=== PATIENT | female | born 1970 | race Caucasian/White ===

== ENCOUNTER → 2016-08-17 | Outpatient (CLI) | payer BC ==
[2016-08-17 10:02] LABS: HEMATOCRIT 38.2 % (37-47); MEAN CELL VOLUME 90.1 fL (80-100); MEAN CORPUSCULAR HEMOGLOBIN 30.2 pg (25-34); MEAN CORPUSCULAR HGB CONC 33.5 g/dl (32-36); MEAN PLATELET VOLUME 9.9 fL (7.4-10.4); PLATELET COUNT 154 K/uL (130-400); RED BLOOD COUNT 4.24 M/uL (4.2-5.4); WHITE BLOOD COUNT 3.02 K/uL (4.8-10.8)
[2016-08-17 10:27] LABS: BLOOD UREA NITROGEN 19 mg/dl (7-18); CALCIUM 8.3 mg/dl (8.5-10.1); CARBON DIOXIDE 29 mmol/L (21-32); CHLORIDE 108 mmol/L (98-107); CREATININE 0.71 mg/dl (0.60-1.20); GLUCOSE 91 mg/dl (70-99); POTASSIUM 4.1 mmol/L (3.5-5.1); SODIUM 142 mmol/L (136-145)
== END | disposition home or self-care (01) ==
LOC: C.LAB 09:34
PROVIDERS: ATTEND Internal Medicine
DX: E03.9 Hypothyroidism, unspecified (principal)

== ENCOUNTER → 2016-09-29 | Outpatient (CLI) | payer BC ==
--- NOTE | 2016-09-29 16:20 | MAMMOGRAPHY REPORT ---
BILATERAL DIGITAL SCREENING MAMMOGRAM TOMOSYNTHESIS WITH CAD: 09/29/2016 CLINICAL HISTORY: Routine screening. Patient has no complaints. TECHNIQUE: Breast tomosynthesis in addition to standard 2D mammography was performed. Current study was also evaluated with a Computer Aided Detection (CAD) system. COMPARISON: Comparison is made to exams dated: 09/29/2015 mammogram, 08/12/2014 mammogram, 05/27/2013 guy mogram, and 05/24/2012 mammogram - [facility]. BREAST COMPOSITION: The tissue of both breasts is extremely dense, which lowers the sensitivity of m ammography. FINDINGS: The parenchymal pattern is unchanged. There are a few benign-appearing calcifications in the breasts. No developing mass, architectural distortion or cluster of suspicious microcalcificatio ns is seen. IMPRESSION: ACR BI-RADS CATEGORY 2: BENIGN There is no mammographic evidence of malignancy. A 1 year screening mammogram is recommended. The pa tient will receive written notification of the results. Approximately 10% of breast cancers are not detected with mammography. A negative mammographic report should not delay biopsy if a clinically suggestive mass is present. Brisa Greene M.D. ay/:09/29/2016 14:57:59 Pre Algebra Teacher: Zulma COLVIN(Mary)(Kenia)(BD), [facility] letter sent: Normal 1/2 BI-RADS Code: ACR BI-RADS Category 2: Benign
== END | disposition home or self-care (01) ==
LOC: C.MAMM 13:38
PROVIDERS: ATTEND Obstetrics & Gynecology
DX: Z12.31 Encounter for screening mammogram for malignant neoplasm of breast (principal)

== ENCOUNTER 2017-06-05 19:00 | Emergency (ER) | payer BC ==
[~2017-06-05] VITALS: Ht 160 cm; Wt 70.2 kg
[2017-06-05 19:29] VITALS: TEMP 37; Ht 160 cm; Wt 70.2 kg
[2017-06-05] MEDS ORDERED: CEFAZOLIN SOD 1000MG/7.5 ML IV PUSH IV STA (20:10)
[2017-06-05] MEDS ORDERED: OPTIRAY 320 IV PRN (20:30)
[2017-06-05] MEDS ORDERED: MELO7.5T5 PO (20:40)
[2017-06-05] MEDS ORDERED: CEFAZOLIN IV 3,000 MG in SYRINGE 0 ML IV ONE (20:45)
[2017-06-05 21:02] LABS: BASO % 0.2 %; BASO ABS # 0.01 K/uL (0-0.2); EOS % 1.2 %; EOS ABS # 0.07 K/uL (0-0.5); HEMATOCRIT 35.9 % (37-47); HEMOGLOBIN 12.7 g/dL (12.0-16.0); IG# 0.01 K/uL (0.00-0.02); LYMPH ABS # 1.43 K/uL (1.2-3.4); MEAN CELL VOLUME 88.6 fL (80-100); MEAN CORPUSCULAR HEMOGLOBIN 31.4 pg (25-34); MEAN CORPUSCULAR HGB CONC 35.4 g/dl (32-36); MEAN PLATELET VOLUME 10.7 fL (7.4-10.4); MONO % 5.9 %; MONO ABS # 0.34 K/uL (0.11-0.59); NEUT % 67.5 %; NEUT ABS # 3.86 K/uL (1.4-6.5); PLATELET COUNT 135 K/uL (130-400); RED CELL DISTRIBUTION WIDTH CV 12.1 % (11.5-14.5); RED CELL DISTRIBUTION WIDTH SD 38.9 fL (36.4-46.3); WHITE BLOOD COUNT 5.72 K/uL (4.8-10.8)
[2017-06-05 21:18] LABS: CALCIUM 8.8 mg/dl (8.5-10.1); CREATININE 0.66 mg/dl (0.60-1.20); POTASSIUM 3.5 mmol/L (3.5-5.1)
--- NOTE | 2017-06-05 22:00 | DIAGNOSTIC IMAGING REPORT ---
RIGHT HAND CT with intravenous contrast CT DOSE: 260.98 mGy.cm HISTORY: Right hand swelling. ct rt hand r/o abscess TECHNIQUE: Multiaxial CT images of the right hand were performed and reformatted in the sagittal and coronal plane following the use of intravenous contrast. A dose lowering technique was utilized adhering to the principles of ALARA. COMPARISON: None. FINDINGS: No acute fracture or dislocation within the right hand. No cortical destruction arthrosis to suggest osteomyelitis at this time. There is a 4 mm ossific density along the volar side of the head of the second metatarsal. This could be due to old trauma or a sesamoid bone. No loculated fluid collections to suggest an abscess. No radiopaque foreign bodies. Mild thickening within the proximal flexor digitorum tendons of the index finger at the level of the second MCP joint. There is mild subcutaneous fat and along the volar side of the index finger crush subtle trace effusions at the second and third MCP joints. No significant joint space narrowing. No soft tissue gas identified. IMPRESSION: 1. Mild subcutaneous fat stranding at the volar side of the index finger. This favors a cellulitis. 2. No loculated fluid collections to suggest an abscess. 3. Possible trace joint effusions at the second and third MCP joints. This could be due to an inflammatory or infectious process. However, there is no joint space narrowing or bony obstruction identified at this time. Clinical correlation recommended to exclude the possibility of a developing septic arthritis. 4. Focal thickening at the flexor digitorum tendon of the index finger at the level of the second MCP joint consistent with a tendinopathy. 5. A 4 mm ossific density along the volar side of the head of the second metatarsal. This could be due to old trauma or a sesamoid bone. Electronically signed by: Roel Agustin M.D. 06/05/2017 9:59 PM Dictated Date/Time: 06/05/2017 9:47 PM
[2017-06-05] MEDS ORDERED: CEPH500C PO (23:04)
--- NOTE | 2017-06-05 23:05 | EMERGENCY ROOM VISIT NOTE ---
History Report prepared by Dianna: Corry Chan Under the Supervision of: Dr. Zachary Jarquin D.O. First contact with patient: 20:00 Chief Complaint: INFECTION Stated Complaint: U TOLD TO COME,INFECTION IN HAND Nursing Triage Summary: Right Hand swollen and increasing for two days. Pt was seen at [facility] and told she needed admitted. Pt did not want admitted and told to try coming to ER for MRI and IV antibiotics. History of Present Illness The patient is a 46 year old female who presents to the Emergency Room with complaints of worsening right hand pain and swelling starting 2 days ago. The patient was sent to the ED from [facility] for IV antibiotics and imaging. The patient notes that she went to a spa 3 days ago where she had a hand treatment. She woke up the next morning with some right 2nd and 3rd finger pain. She had some difficulty sleeping that night from the pain. Yesterday, she started having swelling in her fingers which worsened throughout the day. She went to [email or web address] today and was referred to [facility]. [facility] was concerned because she had some redness up into her arm. They recommended admission for IV antibiotics and MRI, but she did not want to be admitted. She was sent to the ED. She does not have any other complaints. She denies having any medical problems. Source of History: patient Onset: 2 days ago Position: hand (right) Quality: other (pain and swelling) Timing: worsening Note: Pt has some redness into her arm. She denies any other symptoms. Review of Systems See HPI for pertinent positives & negatives. A total of 10 systems reviewed and were otherwise negative. Past Medical & Surgical Medical Problems: (1) No chronic problems Family History No pertinent family history stated. Social History Smoking Status: Current Some Day Smoker Marital Status: Housing Status: lives with family Occupation Status: employed Current/Historical Medications Scheduled Cephalexin Monohydrate (Keflex), 500 MG PO QID Scheduled PRN Meloxicam (Mobic), 7.5 MG PO DAILY PRN for Pain Allergies Coded Allergies: No Known Allergies (Verified Allergy, Unknown, 12/23/04) Physical Exam Vital Signs Date Time Temp Pulse Resp B/P (MAP) Pulse Ox O2 Delivery O2 Flow Rate FiO2 06/05/17 22:11 78 20 110/81 98 Room Air 06/05/17 20:38 78 20 120/76 97 Room Air 06/05/17 19:29 37.0 92 16 145/80 98 Room Air Physical Exam CONSTITUTIONAL/VITAL SIGNS: Reviewed / noted above. GENERAL: Non-toxic in appearance. INTEGUMENTARY: Warm, dry, and [place]. HEAD: Normocephalic. EYES: without scleral icterus or trauma. ENT/OROPHARYNX: clear and moist. LYMPHADENOPATHY/NECK: Is supple without lymphadenopathy or meningismus. RESPIRATORY: Lungs clear and equal. CARDIOVASCULAR: Regular rate and rhythm. GI/ABDOMEN: Soft and nontender. No organomegaly or pulsatile mass. No rebound or guarding. Normal bowel sounds. EXTREMITIES: Edema noted to the first and second fingers with some erythema and edema noted on the palmar aspect of the right hand in between the first and second distal metacarpals. Very light red streak noted crossing the palm to the wrist area. Patient has discomfort with flexion and hyperextension of the first digit. BACK: No CVA tenderness. NEUROLOGICAL: Intact without focal deficits. PSYCHIATRIC: normal affect. MUSCULOSKELETAL: Normally developed with good muscle tone. Medical Decision & Procedures ER Provider Diagnostic Interpretation: Radiology results as stated below per my review and radiologist interpretation: RIGHT HAND CT with intravenous contrast CT DOSE: 260.98 mGy.cm HISTORY: Right hand swelling. ct rt hand r/o abscess TECHNIQUE: Multiaxial CT images of the right hand were performed and reformatted in the sagittal and coronal plane following the use of intravenous contrast. A dose lowering technique was utilized adhering to the principles of ALARA. COMPARISON: None. FINDINGS: No acute fracture or dislocation within the right hand. No cortical destruction arthrosis to suggest osteomyelitis at this time. There is a 4 mm ossific density along the volar side of the head of the second metatarsal. This could be due to old trauma or a sesamoid bone. No loculated fluid collections to suggest an abscess. No radiopaque foreign bodies. Mild thickening within the proximal flexor digitorum tendons of the index finger at the level of the second MCP joint. There is mild subcutaneous fat and along the volar side of the index finger crush subtle trace effusions at the second and third MCP joints. No significant joint space narrowing. No soft tissue gas identified. IMPRESSION: 1. Mild subcutaneous fat stranding at the volar side of the index finger. This favors a cellulitis. 2. No loculated fluid collections to suggest an abscess. 3. Possible trace joint effusions at the second and third MCP joints. This could be due to an inflammatory or infectious process. However, there is no joint space narrowing or bony obstruction identified at this time. Clinical correlation recommended to exclude the possibility of a developing septic arthritis. 4. Focal thickening at the flexor digitorum tendon of the index finger at the level of the second MCP joint consistent with a tendinopathy. 5. A 4 mm ossific density along the volar side of the head of the second metatarsal. This could be due to old trauma or a sesamoid bone. Electronically signed by: Roel Agustin M.D. 06/05/2017 9:59 PM Dictated Date/Time: 06/05/2017 9:47 PM Laboratory Results 06/05/17 20:36 Red Blood Count 4.05, Mean Corpuscular Volume 88.6, Mean Corpuscular Hemoglobin 31.4, Mean Corpuscular Hemoglobin Concent 35.4, Mean Platelet Volume 10.7, Neutrophils (%) (Auto) 67.5, Lymphocytes (%) (Auto) 25.0, Monocytes (%) (Auto) 5.9, Eosinophils (%) (Auto) 1.2, Basophils (%) (Auto) 0.2, Neutrophils # (Auto) 3.86, Lymphocytes # (Auto) 1.43, Monocytes # (Auto) 0.34, Eosinophils # (Auto) 0.07, Basophils # (Auto) 0.01 06/05/17 20:36 Test 06/05/17 20:36 White Blood Count 5.72 K/uL (4.8-10.8) Red Blood Count 4.05 M/uL (4.2-5.4) Hemoglobin 12.7 g/dL (12.0-16.0) Hematocrit 35.9 % (37-47) Mean Corpuscular Volume 88.6 fL (80-100) Mean Corpuscular Hemoglobin 31.4 pg (25-34) Mean Corpuscular Hemoglobin Concent 35.4 g/dl (32-36) Platelet Count 135 K/uL (130-400) Mean Platelet Volume 10.7 fL (7.4-10.4) Neutrophils (%) (Auto) 67.5 % Lymphocytes (%) (Auto) 25.0 % Monocytes (%) (Auto) 5.9 % Eosinophils (%) (Auto) 1.2 % Basophils (%) (Auto) 0.2 % Neutrophils # (Auto) 3.86 K/uL (1.4-6.5) Lymphocytes # (Auto) 1.43 K/uL (1.2-3.4) Monocytes # (Auto) 0.34 K/uL (0.11-0.59) Eosinophils # (Auto) 0.07 K/uL (0-0.5) Basophils # (Auto) 0.01 K/uL (0-0.2) RDW Standard Deviation 38.9 fL (36.4-46.3) RDW Coefficient of Variation 12.1 % (11.5-14.5) Immature Granulocyte % (Auto) 0.2 % Immature Granulocyte # (Auto) 0.01 K/uL (0.00-0.02) Anion Gap 8.0 mmol/L (3-11) Est Creatinine Clear Calc Drug Dose 101.1 ml/min Estimated GFR () 123.6 Estimated GFR (Non- 106.7 BUN/Creatinine Ratio 15.3 (10-20) Calcium Level 8.8 mg/dl (8.5-10.1) Laboratory results as stated above per my review. Medications Administered Medications (Trade) Dose Ordered Sig/Susanna Route Start Time Stop Time Status Last Admin Dose Admin Cefazolin Sodium 3000 mg/Syringe 22.5 ml @ 4.5 mls/min NOW ONCE IV 06/05/17 20:45 06/05/17 20:49 DC 06/05/17 20:47 4.5 MLS/MIN ED Course 2000: Previous medical records were reviewed. The patient was evaluated in room A2. A complete history and physical examination was performed. 5: Cefazolin Sodium 3000 mg/Syringe 22.5 ml @ 4.5 mls/min IV. 2306: On reevaluation, the patient is resting comfortably. I discussed the results and findings with the patient. She verbalized agreement of the treatment plan. She was discharged home. Medical Decision Differential diagnosis: Etiologies such as cellulitis, abscess, MRSA infection, DVT, necrotizing fasciitis, dermatitis, drug eruption, as well as others were entertained.. This is a 46-year-old female who presents to the ED with a chief complaint of infection of the right hand. The patient was seen by orthopedics today and has a follow-up appointment tomorrow. The patient was sent here for some IV antibiotics and for imaging studies. The patient states that her symptoms started about 2-3 days ago. She states that she was at a spot on Monday and had her hands put in a hand bout of some sort. She states that on Monday she developed some discomfort in her fingers and then yesterday developed some swelling in her first and second digits. She was seen by orthopedics today and was sent here for IV antibiotics and imaging studies. She has a follow-up appointment tomorrow where they will review the studies. The patient's blood work was normal. CT scan as noted above. There was noted to be "focal thickening at the flexor digitorum tendon of the index finger at the level of the second MCP joint consistent with a tendinopathy." The patient was treated with IV Ancef. She will be discharged on Keflex. She has an appointment tomorrow to see orthopedics (Dr. Mcgregor) service again in the office. Medication Reconcilliation Current Medication List: was personally reviewed by me Blood Pressure Screening Patient's blood pressure: Normal blood pressure Blood pressure disposition: Did not require urgent referral Impression Primary Impression: Cellulitis of hand, right Scribe Attestation The scribe's documentation has been prepared under my direction and personally reviewed by me in its entirety. I confirm that the note above accurately reflects all work, treatment, procedures, and medical decision making performed by me. Departure Information Dispostion Home / Self-Care Prescriptions Cephalexin Monohydrate (Keflex) 500 Mg Cap 500 MG PO QID, #40 CAP Prov: Zachary Jarquin D.O. 06/05/17 Referrals Dash Trinh D.O. (PCP) Patient Instructions My [facility] Additional Instructions Take your doxycycline. Follow-up with orthopedics tomorrow as scheduled. Return to the emergency department for worsening or new symptoms or any concerns. You have been examined and treated today on an emergency basis only. This is not a substitute for, or an effort to provide, complete comprehensive medical care. It is impossible to recognize and treat all injuries or illnesses in a single emergency department visit. It is therefore important that you follow up closely with your doctor. Call as soon as possible for an appointment.
[2017-06-05 23:31] VITALS: BP 118/68; PULSE 82; O2SAT 98
[2017-06-06] MEDS ORDERED: MELO7.5T6 PO (20:01)
[2017-06-06] MEDS ORDERED: DOXY1TAB6 PO (20:01)
== END 2017-06-05 23:32 | disposition home or self-care (01) ==
LOC: C.EDB 19:01 → C.EDA 23:32
DX: L03.113 Cellulitis of right upper limb (principal); F17.200 Nicotine dependence, unspecified, uncomplicated

== ENCOUNTER 2017-06-06 16:46 | Inpatient (IN) | payer BC ==
[~2017-06-06] VITALS: Ht 160 cm; Wt 68.0 kg
[~2017-06-06 16:46] MED LIST: CEPH500C PO; MELO7.5T5 PO
--- NOTE | 2017-06-06 18:17 | HISTORY & PHYSICAL EXAMINATION ---
DATE OF ADMISSION: 06/06/2017 HISTORY OF PRESENT ILLNESS: She was referred from urgent care where she was seen yesterday. She notes an insidious onset of pain and swelling in the right index finger. She has pain with passive extension of the finger. She was seen in urgent care, she was referred to the ER, where was placed on single intravenous dose of antibiotic, Ancef with some improvement. She also had a CAT scan and she was referred for definitive treatment. She has complaints of pain in the finger. She did note IV antibiotic to result in some improvement in her symptoms. PAST MEDICAL HISTORY: She denies any systemic medical problems. MEDICATIONS: None. PHYSICAL EXAMINATION: HEART: Regular rate and rhythm. LUNGS: Clear to auscultation bilaterally. EXTREMITIES: Right index finger examination: She has pain with passive extension of the finger. She has tenderness in the flexor tendon system. She is most tender over the A1 erica. She has no tenderness dorsally over the hand, but she has mild redness and erythema over the dorsal aspect of the hand. She has no evidence of septic MP joint. She has no open injuries. No gross purulent drainage. MEDICATIONS: Include Mobic p.r.n. ASSESSMENT: A 46-year-old female with early right septic flexor tenosynovitis. PLAN: At this point in time, I would like to admit her to the hospital for intravenous antibiotics. We will place her on antibiotics for 24 hours and then will reassess with a course of treatment. If she is not significantly better, we will consider irrigation and debridement for septic flexor tenosynovitis of the right index finger. She was admitted today. ERNESTINE
[2017-06-06 18:24] VITALS: BP 113/78; PULSE 83; TEMP 36.6; O2SAT 97; BMI 26.6
[2017-06-06 18:51] VITALS: Ht 160 cm; Wt 68.0 kg
[2017-06-06] MEDS ORDERED: CEFAZOLIN CONSULT PHARMACY PRN (19:00)
[2017-06-06] MEDS ORDERED: NURSING VERBAL MED ORDER ONE (19:00)
[2017-06-06] MEDS ORDERED: HYDROCODONE/ACETAMIN 5/325MG TAB PO PRN (19:00)
[2017-06-06] MEDS ORDERED: DOXY1TAB6 PO (20:01)
[2017-06-06] MEDS ORDERED: MELO7.5T6 PO (20:01)
[2017-06-06] MEDS: CEFAZOLIN IV 1,000 MG in SYRINGE 0 ML IV SCH (20:13)
[2017-06-06 23:00] VITALS: BP 109/75; PULSE 74; TEMP 36.8; O2SAT 97
[2017-06-07] VITALS (10 sets, daily range): BP systolic 92–130; BP diastolic 59–72; PULSE 60–89; TEMP 36.4–37.2; O2SAT 94–99
[2017-06-07] MEDS: CEFAZOLIN IV 1,000 MG in SYRINGE 0 ML IV SCH ×3 (04:17→20:11)
[2017-06-07 08:58] LABS: CREATININE 0.77 mg/dl (0.60-1.20)
--- NOTE | 2017-06-07 10:48 | Orthopedic Progress Note ---
Orthopedic Progress Note Date of Service Jun 07, 2017. Subjective Reports: feeling well, pain controlled w PO medications, Denies: complaints, chest pain, SOB, nausea / vomiting, light headedness Additional Notes: Patient states her finger is improving as far as swelling and redness Objective N/V intact, capillary refill less than 2 sec., A&O x3 No erythema dorsal hand Minimal erythema, mild swelling right index finger Flexion improving. Skin in tact, no drainage. Date Time Temp Pulse Resp B/P (MAP) Pulse Ox O2 Delivery O2 Flow Rate FiO2 06/07/17 08:02 98 Room Air 06/07/17 07:47 Room Air 06/07/17 07:35 36.6 70 14 130/68 (88) 98 Room Air 06/06/17 23:00 36.8 74 16 109/75 (86) 97 Room Air 06/06/17 23:00 Room Air 06/06/17 18:24 36.6 83 18 113/78 Room Air 06/06/17 18:24 36.6 83 18 113/78 (90) 97 Room Air Assessment & Plan Assessment: Right index finger flexor tenosynovitis, improving. Plan: Continue to monitor and as per Dr. Mcgregor. Currently on Cefazolin
[2017-06-07] MEDS ORDERED: FENTANYL CITRATE INJ 50 MCG/1 ML 2 ML VIAL ONE (16:46)
[2017-06-07] MEDS ORDERED: ONDANSETRON INJ 2 MG/ML 2 ML VIAL ONE (16:46)
[2017-06-07] MEDS ORDERED: MIDAZOLAM HCL 1 MG/ML 2ML VIAL ONE (16:46)
[2017-06-07] MEDS ORDERED: DEXAMETHASONE SOD INJ 4 MG/ML VIAL ONE (16:46)
[2017-06-07] MEDS ORDERED: PROPOFOL IV EMULSION 10 MG/ML 20 ML VIAL IV ONE ×2 (16:46→17:21)
--- NOTE | 2017-06-07 16:54 | History & Physical Bridge Note ---
H&P Re-Evaluation Bridge Note: I have examined the patient, reviewed the History & Physical and in the interval since the performance of the History & Physical I have noted the following changes of clinical significance: No changes noted
[2017-06-07] MEDS ORDERED: LIDOCAINE HCL 1% 20 ML VIAL ONE (17:14)
[2017-06-07] MEDS ORDERED: BUPIVACAINE 0.5 % 5 MG/1 ML MPF 30ML VIAL ONE (17:14)
[2017-06-07] MEDS ORDERED: BACITRACIN 50000 UNIT VIAL ONE (17:16)
[2017-06-07] MEDS ORDERED: ONDANSETRON INJ 2 MG/ML 2 ML VIAL IV PRN ×2 (17:45→18:00)
[2017-06-07] MEDS ORDERED: ATROPINE SULFATE 0.1 MG/ML 5ML SYR IV PRN (17:45)
[2017-06-07] MEDS ORDERED: EpHEDrine SULFATE INJ 50 MG/ML AMP IV PRN (17:45)
[2017-06-07] MEDS ORDERED: FENTANYL CITRATE INJ 50 MCG/1 ML 2 ML VIAL IV PRN (17:45)
--- NOTE | 2017-06-07 17:54 | [facility] Post Operative Brief Note ---
Immediate Operative Summary Operative Date Jun 07, 2017. Pre-Operative Diagnosis left index septic flexor tenosynovitis Post-Operative Diagnosis left index septic flexor tenosynovitis Procedure(s) Performed I and D left index septic flexor tenosynovitis Surgeon star Marketing Support Assistant Surgeon(s) none Estimated Blood Loss 5 ml Findings Consistent with Post-Op Diagnosis pus in flexor tendon sheath Specimens cultures Drains None Anesthesia Type MAC (and digit block by surgeon) Complication(s) none Disposition Disposition: Recovery Room / PACU
[2017-06-07] MEDS ORDERED: OXYCODONE/ACETAMINOPHEN 5-325 TAB PO PRN (18:00)
[2017-06-07] MEDS ORDERED: MoRPHine SULFATE 4 MG/ML 1 ML CARP\\VIAL IV PRN (18:00)
[2017-06-07] MEDS ORDERED: ACETAMINOPHEN 325 MG TAB PO PRN (18:00)
--- NOTE | 2017-06-07 18:37 | PROGRESS NOTE ---
DATE: 06/07/2017 SUBJECTIVE: Laureen is seen in the preoperative holding area. She notes continued pain in the finger. She notes improvement in antibiotics with decrease in swelling. OBJECTIVE: The patient exhibits continued pain with passive extension of the finger. She has tenderness in the flexor tendon system and she exhibits fusiform swelling in the finger. ASSESSMENT: Septic right index finger flexor tenosynovitis. PLAN: Exam is consistent with continued septic flexor tenosynovitis. She has had some improvements in associated erythema with the antibiotics, but I do feel she has infection in her flexor tendon system. We discussed treatment options, risks and benefits and reasonable outcomes for I&D of septic flexor tenosynovitis, the patient is agreeable and wishes to proceed with surgical intervention.
--- NOTE | 2017-06-07 18:42 | OPERATIVE REPORT ---
DATE OF OPERATION: 06/07/2017 PREOPERATIVE DIAGNOSIS: Right index finger septic flexor tenosynovitis. POSTOPERATIVE DIAGNOSIS: Same. PROCEDURE: Right index finger irrigation and debridement of septic flexor tenosynovitis. SURGEON: Dr. Mcgregor. PILE DRIVER ENGINEER: None. ANESTHESIA: Local with monitored anesthesia care with digital block. INDICATIONS: This is a female who has progressive pain and swelling in the finger. She presents with a positive Kanavel sign. She presents for I&D of septic flexor tenosynovitis. The risks and benefits have been discussed including, but not limited to, risk of infection, nerve injury, stiffness, loss of motion, failure to improve, etc. Reasonable outcomes and options of treatment were discussed. An explanation of appropriate alternatives to the procedure that may be advantageous were discussed and their risks and benefits, as well as the risks and benefits of not proceeding with treatment. I offered to answer any additional inquiries concerning the treatment involved. All the patient's questions were answered. The patient is agreeable, understanding of the treatment plan and alternatives, and wishes to proceed with the treatment plan. DESCRIPTION OF PROCEDURE: I injected mixture of lidocaine and Marcaine in the region of the A1 erica performing a digital block, patient given conscious sedation by the department of anesthesia. The patient was prepped and draped in standard fashion. I made a longitudinal incision directly over the A1 erica. Dissection was carried down through the skin and subcutaneous tissues. Digital nerves were identified and were retracted free. The A1 erica was likewise identified and there was gross purulence in the tendon sheath. There was no purulence in the subcutaneous tissues. I incised the A1 erica and a moderate amount of gross purulence was encountered. This was sent for culture. I was able to express additional pus in the distal flexor tendon system with manual compression. I then performed a second incision, a mid lateral incision on the ulnar aspect of the finger of the region of the DIP joint. I bluntly dissected into the flexor tendon system. I then performed through and through irrigation from proximal to distal with several 100 mL of bacitracin impregnated normal saline until the fluid came back clear. This completed irrigation and debridement of septic flexor tenosynovitis. I additionally irrigated the A1 erica area. The tourniquet was let down, hemostasis was obtained with bipolar cautery. The skin was closed in the palm with a running 4-0 nylon stitch, mid lateral incision was closed with a single stitch of 4-0 nylon and the remainder was allowed to heal by secondary intention. I placed packing in the proximal incision. The patient was placed in a soft dressing, sent to the PACU in stable condition. Postoperative plan will be to monitor cultures. We will continue Ancef as the patient did have a good initial response to Ancef. I attest to the content of the Intraoperative Record and any orders documented therein. Any exception s are noted below.
--- NOTE | 2017-06-07 19:19 | Anesthesiology Progress Note ---
Anesthesia Post Op Note Date & Time Jun 07, 2017 at 19:19 Vital Signs Pain Intensity: 2.0 Vital Signs Past 12 Hours Date Time Temp Pulse Resp B/P (MAP) Pulse Ox O2 Delivery O2 Flow Rate FiO2 06/07/17 19:00 36.8 79 16 107/68 (81) 94 Room Air 06/07/17 19:00 Room Air 06/07/17 18:45 65 15 104/66 96 Room Air 06/07/17 18:35 63 15 103/68 96 Room Air 06/07/17 18:30 37.4 64 15 110/71 96 Room Air 06/07/17 18:20 63 14 101/72 95 Room Air 06/07/17 18:10 79 18 115/72 95 Room Air 06/07/17 18:02 37.6 69 20 101/71 96 Room Air 06/07/17 16:55 36.8 91 16 128/82 (97) 99 Room Air 06/07/17 15:45 Room Air 06/07/17 15:25 37.2 73 18 108/67 (81) 97 Room Air 06/07/17 12:40 37.0 76 14 106/66 (79) 97 Room Air 06/07/17 08:02 98 Room Air 06/07/17 07:47 Room Air 06/07/17 07:35 36.6 70 14 130/68 (88) 98 Room Air Notes Mental Status: alert / awake / arousable, participated in evaluation Pt Amnestic to Procedure: Yes Nausea / Vomiting: adequately controlled Pain: adequately controlled Airway Patency, RR, SpO2: stable & adequate BP & HR: stable & adequate Hydration State: stable & adequate Anesthetic Complications: no major complications apparent
[2017-06-07] MEDS: OXYCODONE/ACETAMINOPHEN 5-325 TAB PO PRN (23:22)
[2017-06-08 04:16] VITALS: BP 97/62; PULSE 71; TEMP 36.7; O2SAT 97
[2017-06-08] MEDS: CEFAZOLIN IV 1,000 MG in SYRINGE 0 ML IV SCH ×2 (04:25→11:42)
[2017-06-08] MEDS: OXYCODONE/ACETAMINOPHEN 5-325 TAB PO PRN ×3 (04:31→15:56)
[2017-06-08 07:56] VITALS: BP 93/60; PULSE 65; TEMP 36.7; O2SAT 97
--- NOTE | 2017-06-08 07:56 | Orthopedic Progress Note ---
Orthopedic Progress Note Date of Service Jun 08, 2017. Subjective Post OP Day: 1 Additional Notes: Having pain this AM but tolerating well. States she has some pins and needles sensation in the finger. Feels the dressing is snug. No other complaints. Objective dressing C/D/I, A&O x3 sensation somewhat decreased in the index finger Date Time Temp Pulse Resp B/P (MAP) Pulse Ox O2 Delivery O2 Flow Rate FiO2 06/08/17 04:16 36.7 71 16 97/62 (74) 97 Room Air 06/07/17 22:53 36.7 60 18 108/69 (82) 99 Room Air 06/07/17 22:11 36.4 66 16 108/72 (84) 96 Room Air 06/07/17 21:00 36.9 75 18 98/63 (75) 98 Room Air 06/07/17 20:00 36.6 76 18 107/62 (77) 96 Room Air 06/07/17 19:30 36.9 89 18 92/59 (70) 95 Room Air 06/07/17 19:00 36.8 79 16 107/68 (81) 94 Room Air 06/07/17 19:00 Room Air 06/07/17 18:45 65 15 104/66 96 Room Air 06/07/17 18:35 63 15 103/68 96 Room Air 06/07/17 18:30 37.4 64 15 110/71 96 Room Air 06/07/17 18:20 63 14 101/72 95 Room Air 06/07/17 18:10 79 18 115/72 95 Room Air 06/07/17 18:02 37.6 69 20 101/71 96 Room Air 06/07/17 16:55 36.8 91 16 128/82 (97) 99 Room Air 06/07/17 15:45 Room Air 06/07/17 15:25 37.2 73 18 108/67 (81) 97 Room Air 06/07/17 12:40 37.0 76 14 106/66 (79) 97 Room Air 06/07/17 08:02 98 Room Air Additional Notes: Cx's pending Assessment & Plan Assessment: POD 1 s/p I&D Right index finger flexor tenosynovitis Plan: Continue IV antibx Dressing change per Dr Mcgregor May loosen fan wrap if continues to feel too tight
--- NOTE | 2017-06-08 09:49 | Anesthesiology Progress Note ---
Anesthesia Post Op Note Date & Time Jun 08, 2017 at 09:48 Vital Signs Vital Signs Past 12 Hours Date Time Temp Pulse Resp B/P (MAP) Pulse Ox O2 Delivery O2 Flow Rate FiO2 06/08/17 08:00 Room Air 06/08/17 07:56 36.7 65 16 93/60 (71) 97 Room Air 06/08/17 04:16 36.7 71 16 97/62 (74) 97 Room Air 06/07/17 22:53 36.7 60 18 108/69 (82) 99 Room Air 06/07/17 22:11 36.4 66 16 108/72 (84) 96 Room Air Notes Mental Status: alert / awake / arousable, participated in evaluation Pt Amnestic to Procedure: Yes Nausea / Vomiting: adequately controlled Pain: adequately controlled Airway Patency, RR, SpO2: stable & adequate BP & HR: stable & adequate Hydration State: stable & adequate Anesthetic Complications: no major complications apparent
[2017-06-08 15:45] VITALS: BP 104/68; PULSE 63; TEMP 36.7; O2SAT 98
[2017-06-08] MEDS ORDERED: OXYC-57 PO (16:00)
[2017-06-08] MEDS ORDERED: CEPH500C PO (16:00)
--- NOTE | 2017-06-08 16:16 | Discharge Instructions ---
Discharge Instructions Date of Service Jun 08, 2017. Admission Reason for Admission: R Index Finger Septic Flexor Tenosynovitis Discharge Discharge Diagnosis / Problem: Right Index Finger Septic Flexor Tenosynovitis Discharge Goals Goal(s): Decrease discomfort, Improve function, Increase independence Activity Recommendations Activity Limitations: per Instructions/Follow-up section Weightbearing Status: Right non-weightbearing . Instructions / Follow-Up Instructions / Follow-Up ACTIVITY RECOMMENDATIONS: * Avoid lifting anything with the right hand at this time. As you have less pain/swelling and more ability to move the fingers, you may hold a drinking glass (8oz). Nothing heavier until you see Dr Mcgregor for a follow up visit. SPECIAL CARE INSTRUCTIONS: * Your bandage should changed regularly. Change the bandage tomorrow. () Then change every other day. Keep the wounds covered until * Some drainage onto the dressing may occur. This is normal. * If the bandage feels excessively tight, you may loosen the elastic bandage. Then call the physician's office for further instructions. * If possible, keep your hand elevated above the level of your heart for the first 2 post operative days. You may use a sling if necessary. * You should move your fingers regularly (50-100 motions per hour) unless otherwise instructed. * Do not soak the wound. You may shower/bathe but you must keep a waterproof covering over the bandage while doing so. Keep the dressing clean and dry. SPECIAL PRECAUTIONS: * If you notice increased drainage, fever over 101 degrees F. or severe, unremitting pain, redness, increased swelling, call your physician/office at . * You may have been prescribed pain medication. If you experience nausea and/or skin rash, discontinue this medication and contact our office for an alternative medication. FOLLOW UP VISIT: If appointment is not already scheduled: Please call [facility] [place] to make a follow-up appointment to see Dr Mcgregor or his PA 10 days from the day of your surgery at . Current Hospital Diet Patient's current hospital diet: Regular Diet Discharge Diet Recommended Diet: Regular Diet Procedures Procedures Performed: I and D left index septic flexor tenosynovitis Pending Studies Studies pending at discharge: yes List of pending studies: Final Cultures pending Medical Emergencies . Who to Call and When: Medical Emergencies: If at any time you feel your situation is an emergency, please call 911 immediately. . Non-Emergent Contact Non-Emergency issues call your: Surgeon Call Non-Emergent contact if: temperature is above 101.5, your pain is not controlled, your pain is worsening, wound has increased drainage, wound has increased redness . "Provider Documentation" section prepared by Scar Levy. . [place] Drug Monitoring Program Search Results: patient reviewed within database, no issues identified
[2017-06-08 16:41] VITALS: BP 104/68; PULSE 63; TEMP 36.7; O2SAT 98
--- NOTE | 2017-06-08 17:15 | DISCHARGE SUMMARY ---
DISCHARGE DIAGNOSIS: Right index finger flexor tenosynovitis. CONSULTS: None. COMPLICATIONS: None. PROCEDURES: Right index finger irrigation and debridement of septic flexor tenosynovitis by Dr. Mcgregor on 06/07/2017. BRIEF HISTORY: As dictated in history and physical. HOSPITAL SUMMARY: The patient was admitted for the above-noted diagnosis. She was started on IV antibiotics. On her first hospital day, she was feeling well, pain was fairly well controlled. She had felt that her finger was somewhat improving. After seeing her later in the afternoon, she felt that there was no significant improvement and that she did have the pain over the palmar aspect of the first MP joint of the index finger and was still having moderate pain with passive extension. Dr. Mcgregor saw her later in the evening and felt that she warranted irrigation and debridement and then took her to the operating room and the above noted debridement was performed. On her first postoperative day, she was seen this morning by myself and was having pain but was tolerating well, stated that she had some pins and needle sensation in the finger and felt that the dressing was not, but she had no complaints and vital signs were stable. After discussing the case with Dr. Mcgregor, I saw the patient later on this afternoon around 4:00 p.m. The dressing was then removed. There was some packing in the proximal incision that was removed and the incisions appeared benign. As far as drainage, she had some mild erythema around both incision. There is some mild swelling noted at the index finger as well as the middle finger. The erythema did not extend past the incisions. She had no pain over the dorsum of the hand or into the palm of the hand. She had limited range of motion at this time of the index finger due to surgery, but the other fingers she was moving quite well. Sensation was intact and after discussion with Dr. Mcgregor of my findings, it was felt that she could be discharged to home. After the hand was then redressed and she was discharged home on 06/08/2017. For further review, please see chart. LABORATORY AND X-RAY DATA: As per chart. DISCHARGE INSTRUCTIONS: The patient was discharged home in satisfactory condition on 06/08/2017. DIET: Regular. ACTIVITY: Nonweightbearing, right hand. For further activity recommendations, see a hand care instruction sheets and special care instructions and precautions as noted. FOLLOWUP: Follow up with Dr. Mcgregor in 10 days from the day of surgery. The patient to call for an appointment if one has not been made for you. DISCHARGE MEDICATIONS: Percocet 5/325 one to two tabs p.o. q. 4-6 hours p.r.n. and continue Keflex 500 mg p.o. q.i.d. for 3 weeks; resume Meloxicam daily p.r.n. and stop taking doxycycline.
== END 2017-06-08 17:25 | disposition home or self-care (01) | DRG 514 ==
LOC: C.MSW 18:16 → OBSVTOIN 18:49
PROVIDERS: ADMIT Orthopaedic Surgery; ATTEND Orthopaedic Surgery
PROC: 0LB70ZZ Excision of Right Hand Tendon, Open Approach (ICD-10-PCS; principal; 2017-06-07 14:00)
DX: M65.841 Other synovitis and tenosynovitis, right hand (principal)

== ENCOUNTER → 2017-11-14 | Outpatient (CLI) | payer BC ==
[~2017-11-14] MED LIST changes: +OXYC-57 PO
== END | disposition home or self-care (01) ==
LOC: C.PAPS 19:06
PROVIDERS: ATTEND Obstetrics & Gynecology
DX: Z01.411 Encounter for gynecological examination (general) (routine) with abnormal findings (principal)